=== PATIENT | male | born 1985 | race Caucasian/White ===

== ENCOUNTER 2017-10-26 22:48 | Emergency (ER) | payer SELFPAY ==
[~2017-10-26] VITALS: Ht 180.3 cm; Wt 75.0 kg
[2017-10-26 22:54] VITALS: TEMP 36.8; Ht 180.3 cm; Wt 75.0 kg
[2017-10-26] MEDS ORDERED: IBUPROFEN 600 MG TAB PO STA (23:04)
--- NOTE | 2017-10-26 23:40 | EMERGENCY ROOM VISIT NOTE ---
ED Visit Note First contact with patient: 22:55 CHIEF COMPLAINT: knee pain HISTORY OF PRESENT ILLNESS: This 32 yo patient presents to the emergency department with family after sustaining an injury to the left knee after hitting it on an end table today. The patient denies any other injuries besides their knee. The patient denies swelling or bruising. There is pain diffusely with an abrasion. They rate the pain as throbbing and 5/10. The patient states they are able to walk on it. No numbness or tingling. No previous injuries to this knee. No ankle, foot or hip pain. Td is absent. REVIEW OF SYSTEMS: A 6 system review of systems was completed with positives and pertinent negatives listed in the HPI. ALLERGIES: none MEDICATIONS: none PMH: Orthopedic injury SOCIAL HISTORY: no drug use PHYSICAL EXAM: Vital Signs: Reviewed Nurse's notes, vital signs stable. GENERAL : White male, no acute distress, but appears in pain, well-developed, well- nourished. MENTAL STATUS: Alert, oriented to person place and time, and cooperative. MUSCULOSKELETAL: The left knee is not swollen. There is no ecchymosis. There is no joint effusion present. The patient is tender diffusely. There is no joint line tenderness. The patella not subluxate. Range of motion is intact. Strength of the quads and hamstrings is 5/5. Chasidy's is neg. Ling's and Anterior Drawer tests are neg. There is no laxity with varus and valgus stressing. The foot and toes are warm and well-perfused. Dorsalis pedis pulse 2+. Sensation to pain and light touch is intact. Capillary refill less than 2 seconds. Superficial abrasion is present to the anterior aspect of the knee EMERGENCY DEPARTMENT COURSE: I examined the patient. X-rays of the left knee were reviewed by myself and my Attending and reveal no fx. wound care was done by nursing. The patient was placed in a knee Rico wrap over the bandage is he was advised to follow-up orthopedics in a few days if symptoms persist or here in the ER sooner for severe pain, numbness, tingling, worsening signs or symptoms or as needed. Under my direction and the position was satisfactory. The patient was instructed on the use of crutches. The patient was discharged home in good condition. DIAGNOSIS: #1 left knee injury #2 left knee abrasion DISCHARGE INSTRUCTIONS: Antibiotic ointment and bandage to the areas until healed. Follow up with family doctor or return for any signs of infection (increasing redness, swelling , drainage, or fever). Keep covered when in sun until fully healed then SPF 50 or higher until scar healed. Ibuprofen(Motrin, Advil) may be used for fever or pain. Use 600mg every six hours as needed. Take with food. Avoid using more than 2400mg in a 24 hour period. Do not use 2400mg per day for more than three consecutive days without physician direction. Prolonged inappropriate use can lead to stomach upset or ulcers. This medication can be taken if you need to drive, work, or perform activities which may be dangerous when taking narcotic pain medication. (AND/OR) Acetaminophen(Tylenol) may be used for fever or pain. Use 1000mg every six hours as needed. Avoid using more than 3000mg in a 24 hour period. This medication can be taken if you need to drive, work, or perform activities which may be dangerous when taking narcotic pain medication. Ice compresses for 20 minutes at a time four times daily for 2-3 days. Use the crutches as instructed. Rest and elevate your injury. Wear knee Rico wrap for the next few days until pain subsides. Do not have it so tight that you cannot feel your foot. Continue current medications. Return to the ER immediately for any numbness, tingling, severe pain, extreme swelling in the extremity or as needed. Call Orthopedics in 3-5 days if symptoms persist to arrange follow up for your injury. Current/Historical Medications Miscellaneous Medications None (Patient States No Home Meds) Allergies Coded Allergies: No Known Allergies (Unverified Allergy, Unknown, 06/25/04) Vital Signs Date Time Temp Pulse Resp B/P (MAP) Pulse Ox O2 Delivery O2 Flow Rate FiO2 10/26/17 22:54 36.8 77 18 144/83 100 Room Air Medications Administered Medications (Trade) Dose Ordered Sig/Brigid Route Start Time Stop Time Status Last Admin Dose Admin Ibuprofen (Motrin Tab) 600 mg NOW STAT PO 10/26/17 23:04 10/26/17 23:05 DC 10/26/17 23:12 600 MG Departure Information Referrals No Doctor, Assigned (PCP) Patient Instructions [facility]
[2017-10-26 23:50] VITALS: BP 131/70; PULSE 62; O2SAT 97
--- NOTE | 2017-10-27 06:31 | DIAGNOSTIC IMAGING REPORT ---
L KNEE 3 VIEWS CLINICAL HISTORY: Left knee pain COMPARISON: None. DISCUSSION: There is minimal narrowing of the medial joint compartment. No fractures or dislocations are visualized. There are no erosive or destructive changes. IMPRESSION: Minimal degenerative change. No fractures or dislocations identified. Electronically signed by: Alejandro Hilario M.D. 10/27/2017 6:29 AM Dictated Date/Time: 10/27/2017 6:29 AM
== END 2017-10-26 23:52 | disposition home or self-care (01) ==
LOC: C.EDB 22:49 → C.EDA 23:52
DX: S80.212A Abrasion, left knee, initial encounter (principal); W22.09XA Striking against other stationary object, initial encounter; Z87.828 Personal history of other (healed) physical injury and trauma

== ENCOUNTER 2017-10-30 16:25 | Emergency (ER) | payer SELFPAY ==
[~2017-10-30] VITALS: Ht 180.3 cm; Wt 73.1 kg
[2017-10-30 16:30] VITALS: Ht 180.3 cm; Wt 73.1 kg
[2017-10-30] MEDS ORDERED: ACETAMINOPHEN 500 MG TAB PO STA (17:33)
--- NOTE | 2017-10-30 17:47 | DIAGNOSTIC IMAGING REPORT ---
LEFT LOWER EXTREMITY VENOUS DOPPLER CLINICAL HISTORY: Left leg swelling. Recent travel. COMPARISON STUDY: No previous studies for comparison. TECHNIQUE: Sonography of the deep venous system of the left lower extremity was performed. Compression and augmentation were evaluated. FINDINGS: The left common femoral, superficial femoral and popliteal veins were compressible. Augmentation was normal. Flow was shown within the deep calf vessels. Note is made of a 3.6 x 2 x 1.2 cm complex hypoechoic abnormality within left popliteal fossa. No color flow is identified within this finding. IMPRESSION: 1. No evidence of deep venous thrombus within the left lower extremity. 2. 3.6 x 2 x 1.2 cm hypoechoic abnormality within the left popliteal fossa. This statistically reflects a complex popliteal cyst. However, a follow-up ultrasound in 3 months is recommended to exclude the less likely possibility of a cystic mass. Electronically signed by: Pedro Brown M.D. 10/30/2017 5:45 PM Dictated Date/Time: 10/30/2017 5:44 PM
--- NOTE | 2017-10-30 18:48 | EMERGENCY ROOM VISIT NOTE ---
History First contact with patient: 16:39 Chief Complaint: LEG PAIN,LEG INJURY Stated Complaint: LEFT LEG HURTING AND SWOLLEN History of Present Illness The patient is a 32 year old male who presents to the Emergency Room with complaints of left leg pain. The patient reports that he was here several days ago due to a left knee injury after he fell into a TV stand. He had x-rays done and was told they were negative. He states that he had 2 days off work, however he returned to work and has had worsening pain. He reports the pain radiates throughout the entire leg. He states he feels that the calf is swollen. He rates his discomfort a 7/10. The patient denies any new injury. He denies any numbness or weakness. He is a smoker. He denies any history of blood clots. Review of Systems A complete 10 point review of systems was reviewed with the patient with pertinent positives and negatives as per history of present illness. All else were negative. Social History Smoking Status: Current Every Day Smoker Current/Historical Medications No Active Prescriptions or Reported Meds Physical Exam Vital Signs Date Time Temp Pulse Resp B/P (MAP) Pulse Ox O2 Delivery O2 Flow Rate FiO2 10/30/17 18:56 36.7 66 18 110/63 99 10/30/17 18:24 66 18 110/63 99 Room Air 10/30/17 16:30 36.7 90 18 119/59 99 Room Air Physical Exam VITALS: Vitals are noted on the nurse's note and reviewed by myself. Vital signs stable. GENERAL: This is a 32-year-old male, in no acute distress, nondiaphoretic, well- developed well-nourished. MUSCULOSKELETAL: No deformity of the left knee. No obvious edema or erythema. There is tenderness especially along the medial aspect of the left knee. NEURO: Patient was alert and oriented to person place and time. Normal sensation to light and sharp touch. Deep tendon reflexes 2+ throughout. No focal neurological deficits. Medical Decision & Procedures ER Provider Diagnostic Interpretation: LEFT LOWER EXTREMITY VENOUS DOPPLER CLINICAL HISTORY: Left leg swelling. Recent travel. COMPARISON STUDY: No previous studies for comparison. TECHNIQUE: Sonography of the deep venous system of the left lower extremity was performed. Compression and augmentation were evaluated. FINDINGS: The left common femoral, superficial femoral and popliteal veins were compressible. Augmentation was normal. Flow was shown within the deep calf vessels. Note is made of a 3.6 x 2 x 1.2 cm complex hypoechoic abnormality within left popliteal fossa. No color flow is identified within this finding. IMPRESSION: 1. No evidence of deep venous thrombus within the left lower extremity. 2. 3.6 x 2 x 1.2 cm hypoechoic abnormality within the left popliteal fossa. This statistically reflects a complex popliteal cyst. However, a follow-up ultrasound in 3 months is recommended to exclude the less likely possibility of a cystic mass. Medications Administered Medications (Trade) Dose Ordered Sig/Brigid Route Start Time Stop Time Status Last Admin Dose Admin Acetaminophen (Tylenol Tab) 1,000 mg NOW STAT PO 10/30/17 17:33 10/30/17 17:34 DC 10/30/17 18:22 1,000 MG Medical Decision The patient was evaluated as above. As he has had increasing pain and states the pain is radiating throughout the entire leg, an ultrasound was performed to rule out a DVT. This was negative for DVT but did show what appears to be a popliteal cyst. Patient was informed of this. It may be contributing to his pain. He was encouraged to follow-up with orthopedics for further evaluation. He was instructed to take Tylenol and ibuprofen for pain. He verbalized understanding of my assessment and treatment plan and was discharged home in good condition. Medication Reconcilliation Current Medication List: was personally reviewed by me Blood Pressure Screening Patient's blood pressure: Normal blood pressure Impression Primary Impression: Leg pain, left Departure Information Dispostion Home / Self-Care Condition GOOD Prescriptions No Active Prescriptions or Reported Meds Referrals No Doctor, Assigned (PCP) Michael King, D.O. Patient Instructions My [facility] [place] Additional Instructions Naproxen [id number] twice a day for pain. Follow-up with orthopedics for further evaluation of your knee pain. Return to the emergency department with any worsening or new/concerning symptoms.
[2017-10-30 18:56] VITALS: BP 110/63; PULSE 66; TEMP 36.7; O2SAT 99
== END 2017-10-30 18:57 | disposition home or self-care (01) ==
LOC: C.EDB 16:26 → C.EDD 18:57
DX: M79.605 Pain in left leg (principal); F17.210 Nicotine dependence, cigarettes, uncomplicated